=== PATIENT | female | born 1960 | race Caucasian/White ===

== ENCOUNTER 2018-08-10 10:04 | Emergency (ER) | payer OTHER ==
[~2018-08-10] VITALS: Ht 160 cm; Wt 63.0 kg
[~2018-08-10 10:04] MED LIST: NO MEDS
[2018-08-10 10:07] VITALS: BP 145/78; PULSE 99; RESP 18; Ht 160 cm; Wt 63.0 kg
[2018-08-10] MEDS ORDERED: morphine 4 MG/ML VIAL IV STA (10:41)
[2018-08-10] MEDS ORDERED: SOD CHLORIDE 0.9% 1,000 ML IV STA (10:41)
[2018-08-10] MEDS ORDERED: HYDROmorphONE 1 MG/ML SYG IV STA (11:52)
[2018-08-10] MEDS ORDERED: SOD CHLORIDE 0.9% 100 ML ONE (11:55)
[2018-08-10] MEDS ORDERED: IOHEXOL 300MG/ML 150 ML BTL ONE (11:55)
[2018-08-10] MEDS ORDERED: IODIXANOL LOCM 100 ML BTL ONE (11:56)
--- NOTE | 2018-08-10 12:46 | ERD ---
ER Documentation Chief Complaint Chief Complaint pain/blood with urination x 4 days HPI 58-year-old female reports ED complaining of abdominal pain and fever off and on x1 year. She reports that she had a colonoscopy done 1 year ago showing 3 polyps and since then her abdomen has been hurting off and on. She reports that she went to the urgent care about 3 days ago due to the pain in the told her that she had severe blood in her urine. They discharged her with Cipro and Flagyl medications which she has been taking appropriately since then. However her abdominal pain is still been present. She reports abdominal pain is located at the left lower quadrant and she states that as 4 out of 10 intensity. She describes it as an aching pain. She reports nonspecific low back pain as well. In addition she has felt fevers at home and chills as well at nighttime. She is not sure if she has any blood in her urine still. ROS All systems reviewed and are negative except as per history of present illness. Medications Home Meds Active Scripts Hydrocodone/Acetaminophen ([place] 5-325 Tablet) 1 Each Tablet, 1 TAB PO Q6H PRN for PAIN, #14 TAB Prov:AMPARO SALES PA-C 08/10/18 Reported Medications [No Meds] No Conflict Check 09/04/09 Allergies Allergies: Coded Allergies: Sulfamethoxazole (Verified Allergy, Mild, SWELLING, 09/04/09) Trimethoprim (Verified Allergy, Mild, SWELLING, 09/04/09) PMhx/Soc History of Surgery: Yes (LT KNEE 1988) Anesthesia Reaction: No Hx Neurological Disorder: No Hx Respiratory Disorders: No Hx Cardiac Disorders: No Hx Psychiatric Problems: No Hx Miscellaneous Medical Probl: No Hx Alcohol Use: No Hx Substance Use: No Hx Tobacco Use: No Smoking Status: Never smoker FmHx Family History: No diabetes Physical Exam Vitals Vital Signs Date Temp Pulse Resp B/P (MAP) Pulse Ox O2 O2 Flow FiO2 Time Delivery Rate 08/10/18 98.1 99 18 145/78 97 10:07 (100) Physical Exam Const: No acute distress Head: Atraumatic Eyes: Normal Conjunctiva, PERRLA ENT: Normal External Ears, Nose and Mouth. Neck: Full range of motion. Resp: Clear to auscultation bilaterally Cardio: Regular rate and rhythm Abd: Normal bowel sounds, tenderness to LLQ. No rebounding or guarding. No peritoneal signs Skin: No petechiae or rashes Back: Tenderness to low back nonspecific Ext: No cyanosis, or edema Neur: Awake and alert Psych: Normal Mood and Affect Result Diagram: 08/10/18 1051 08/10/18 1051 Results 24 hrs Laboratory Tests Test 08/10/18 10:51 White Blood Count 6.7 10^3/ul Red Blood Count 4.47 10^6/ul Hemoglobin 13.7 g/dl Hematocrit 41.6 % Mean Corpuscular Volume 93.1 fl Mean Corpuscular Hemoglobin 30.6 pg Mean Corpuscular Hemoglobin Concent 32.9 g/dl Red Cell Distribution Width 12.4 % Platelet Count 308 10^3/UL Mean Platelet Volume 10.1 fl Immature Granulocytes % 0.300 % Neutrophils % 58.6 % Lymphocytes % 21.7 % Monocytes % 10.2 % Eosinophils % 8.0 % Basophils % 1.2 % Nucleated Red Blood Cells % 0.0 /100WBC Immature Granulocytes # 0.020 10^3/ul Neutrophils # 3.9 10^3/ul Lymphocytes # 1.4 10^3/ul Monocytes # 0.7 10^3/ul Eosinophils # 0.5 10^3/ul Basophils # 0.1 10^3/ul Nucleated Red Blood Cells # 0.0 10^3/ul Urine Color YELLOW Urine Clarity SLIGHTLY CLOUDY Urine pH 8.0 Urine Specific [place] 1.010 Urine Ketones 1+ mg/dL Urine Nitrite NEGATIVE mg/dL Urine Bilirubin NEGATIVE mg/dL Urine Urobilinogen NEGATIVE mg/dL Urine Leukocyte Esterase 1+ Emi/ul Urine Microscopic RBC 4 /HPF Urine Microscopic WBC 5 /HPF Urine Bacteria FEW /HPF Urine Granular Casts FEW /HPF Urine Mucus FEW /HPF Urine Hemoglobin NEGATIVE mg/dL Urine Glucose NEGATIVE mg/dL Urine Total Protein 1+ mg/dl Sodium Level 142 mmol/L Potassium Level 5.3 mmol/L Chloride Level 104 mmol/L Carbon Dioxide Level 26 mmol/L Anion Gap 12 Blood Urea Nitrogen 13 mg/dl Creatinine 1.02 mg/dl Est Glomerular Filtrat Rate mL/min 55 mL/min Glucose Level 100 mg/dl Calcium Level 10.6 mg/dl Total Bilirubin 0.4 mg/dl Direct Bilirubin 0.00 mg/dl Indirect Bilirubin 0.4 mg/dl Aspartate Amino Transf (AST/SGOT) 31 IU/L Alanine Aminotransferase (ALT/SGPT) 31 IU/L Alkaline Phosphatase 79 IU/L Total Protein 8.5 g/dl Albumin 4.6 g/dl Lipase 650 U/L Current Medications Medications Dose Sig/Angelia Start Time Status Last (Trade) Ordered Route PRN Stop Time Admin Dose Reason Admin Sodium 1,000 ml @ Q1H STAT 08/10/18 DC 08/10/18 Chloride 1,000 mls/hr IV 10:41 10:53 08/10/18 11:40 Morphine 4 mg ONCE STAT 08/10/18 DC 08/10/18 Sulfate IV 10:41 10:53 (morphine) 08/10/18 10:45 1 mg ONCE STAT 08/10/18 DC Hydromorphone IV 11:52 HCl 08/10/18 11:53 (Dilaudid) IV Flush 10 ml STK-MED 08/10/18 DC (NS 10 ml) ONCE .ROUTE 11:55 08/10/18 11:56 Sodium 100 ml @ ud STK-MED 08/10/18 DC Chloride ONCE .ROUTE 11:55 08/10/18 11:56 Iohexol 150 ml STK-MED 08/10/18 DC (Omnipaque ONCE .ROUTE 11:55 300mg/ ml) 08/10/18 11:56 Iodixanol 100 ml STK-MED 08/10/18 DC (Visipaque ONCE .ROUTE 11:56 Locm) 08/10/18 11:57 Procedures/MDM ED COURSE: The patient was stable throughout ED course. I kept the patient informed of laboratory and diagnostic imaging results throughout the ED course. DIAGNOSTIC IMAGING: Read by radiologist. PROCEDURE: CT abdomen and pelvis with contrast. CLINICAL INDICATION: Abdominal pain. Hematuria. TECHNIQUE: CT scan of the abdomen and pelvis without oral contrast was per formed and is reconstructed at 2.5 mm contiguous axial intervals from the dome of the diaphragm to the inferior pubic rami.. The patient was scanned with intravenous contrast. Sagittal and coronal reformatted images were obtained from the axial source images. The calculated radiation dose measures 490 mGy centimeters. The CTDI measures 9 mGy. Individualized dose optimization technique was used for the performance of this exam. This included 1. Automated exposure control. 2. Adjustment of the mA and / or kV according to the patient's size. 3. Use of iterative reconstructed technique. DICOM images are available. COMPARISON: None. FINDINGS: The lung bases are clear of any infiltrate or nodule. No effusion is seen. The liver is of normal size, contour and attenuation with no mass or ductal dilatation. No gallstones are visualized. No splenic, adrenal or pancreatic a bnormalities present. Kidneys enhance symmetrically and are of normal size and contour. No hydron ephrosis, calculus or mass Is seen. Ureters are of normal course and caliber with no stone. No bladder mass or stone is present. Uterus and ovaries appear normal. There is no aneurysm. No adenopathy is present. There are visible but nonpathologically enlarged mesenteric nodes. No bowel mass or obstruction is present. The appendix is normal. No phlegmon, ascites or pneumoperitoneum is visualized. The osseous structures are intact. IMPRESSION: No evidence of urolithiasis, obstructive uropathy, diverticulitis or appendicitis. .Angus Gallo MD, MD Date Time Electronically viewed and signed by .Angus Gallo MD, MD on 08/10/2018 12:35 PROCEDURES: none MEDICATIONS GIVEN: Morphine, Dilaudid, IV fluids Patient tolerated medication well with no adverse reactions. Patient reported improvement in pain. MEDICAL DECISION MAKING: Patient is a 58-year-old female planing of left lower quadrant pain off and on f or 1 year. Patient reports that she went to an urgent care about 3 days ago in which they told her she had significant blood in her urine and they prescribed her Cipro and Flagyl. She reports that her abdominal pain has worsened and that is why she reported to the ED today. On physical exam patient shows tenderness to the left lower quadrant and tenderness to her low back and is nonspecific. L abs were done showing a lipase of 650. CT scan was done and was unremarkable. Urinalysis was done showing no bloody urine but +1 leukocyte esterase. At this time I think the patient is suffering from acute pancreatitis of unknown cause. H&P and other data not c/w emergent process (eg. appendicitis, intussusception, incarcerated hernia, perforated viscus, peritonitis, torsion). Patient was give n pain control and told to rest in order for improvement. She was told to follow-up with her primary care provider next 1 or 2 days for further care and management. Patient was told to continue taking her Flagyl and Cipro Floxin until she finishes her course. Vital signs were reviewed. Patient is afebrile. Patient was not hypoxic. Patient was hemodynamically stable. PRESCRIPTION: [place] DISCHARGE: At this time, patient is stable for discharge and outpatient management. I have instructed the patient to follow-up with his/her primary care physician in 1-2 days. I have discussed with the patient the possibility of needing to see a specialist for further workup and imaging studies if symptoms persist. I have instructed the patient to promptly return to the ER for any new or worsening symptoms including increased pain, fever, nausea, vomiting, weakness or LOC. The patient and/or family expressed understanding of and agreement with this plan. All questions were answered. Home care instructions were provided. Disclaimer: Inadvertent spelling and grammatical errors are likely due to E HR/dictation software use and do not reflect on the overall quality of patient care. Also, please note that the electronic time recorded on this note does not necessarily reflect the actual time of the patient encounter. Departure Diagnosis: Primary Impression: Pancreatitis Chronicity: acute Pancreatitis type: other Acute pancreatitis complication: unspecified Qualified Codes: K85.80 - Other acute pancreatitis without necrosis or infection Condition: Fair Patient Instructions: Pancreatitis Referrals: [facility] YOU HAVE RECEIVED A MEDICAL SCREENING EXAM AND THE RESULTS INDICATE THAT YOU DO NOT HAVE A CONDITION THAT REQUIRES URGENT TREATMENT IN THE EMERGENCY DEPARTMENT. FURTHER EVALUATION AND TREATMENT OF YOUR CONDITION CAN WAIT UNTIL YOU ARE SEEN IN YOUR DOCTORS OFFICE WITHIN THE NEXT 1-2 DAYS. IT IS YOUR RESPONSIBILITY TO MAKE AN APPOINTMENT FOR FOLOW-UP CARE. IF YOU HAVE A PRIMARY DOCTOR --you should call your primary doctor and schedule an appointment IF YOU DO NOT HAVE A PRIMARY DOCTOR YOU CAN CALL OUR PHYSICIAN REFERRAL HOTLINE AT IF YOU CAN NOT AFFORD TO SEE A PHYSICIAN YOU CAN CHOSE FROM THE FOLLOWING [facility] [address] [facility] [address] [facility] [facility] [address] [facility] [address] [facility] [facility] [address] [facility]. [facility] [address] [facility]. [facility] YOU HAVE RECEIVED A MEDICAL SCREENING EXAM AND THE RESULTS INDICATE THAT YOU DO NOT HAVE A CONDITION THAT REQUIRES URGENT TREATMENT IN THE EMERGENCY DEPARTMENT. FURTHER EVALUATION AND TREATMENT OF YOUR CONDITION CAN WAIT UNTIL YOU ARE SEEN IN YOUR DOCTORS OFFICE WITHIN THE NEXT 1-2 DAYS. IT IS YOUR RESPONSIBILITY TO MAKE AN APPOINTMENT FOR FOLOW-UP CARE. IF YOU HAVE A PRIMARY DOCTOR --you should call your primary doctor and schedule and appointment IF YOU DO NOT HAVE A PRIMARY DOCTOR YOU CAN CALL OUR PHYSICIAN REFERRAL HOTLINE AT . IF YOU CAN NOT AFFORD TO SEE A PHYSICIAN YOU CAN CHOSE FROM THE FOLLOWING [facility] INSTITUTIONS: [facility] [address] [place] [address] [facility] [address] [place], [place] [id number] [place] [address] + [facility] [address] [place] [address] Additional Instructions: Llame al doctor MAANA y shadia jeffrey JAVON PARA DENTRO DE 1-2 BURNHAM.Dgale a la secretaria que nosotros le instruimos hacer esta javon.Avise o llame si rondon condicin se empeora antes de la javon. Regresa aqui si peor o no mejor. AMPARO SALES PA-C Aug 10, 2018 12:46
[2018-08-10] MEDS ORDERED: HYDR-4011 PO (12:47)
== END 2018-08-10 13:08 | disposition home or self-care (01) ==
LOC: FTE 10:04
DX: K85.80 Other acute pancreatitis without necrosis or infection (principal)
CPT/HCPCS: 36415; 74177; 80048; 80076; 81001; 83690; 85025; 96361; 96374; 99285; J2270; J7030; Q9967